=== PATIENT | male | born 1965 | race Caucasian/White ===

== ENCOUNTER 2023-02-19 19:07 | Inpatient (IN) | payer OTHER ==
[~2023-02-19] VITALS: Ht 172.7 cm; Wt 99.8 kg
[~2023-02-19 19:07] MED LIST: HYDR-5080 PO; IBUP-2217 PO; LISI-486 PO; METF-1139 PO
[2023-02-19 19:39] VITALS: BP 147/73; PULSE 67; RESP 16; TEMP 97.4; O2SAT 98
[2023-02-19 21:38] LABS: BASOPHILS % (AUTO) 0.7 % (0.0-2.0); EOSINOPHILS # (AUTO) 0.3 K/uL (0-0.4); EOSINOPHILS % (AUTO) 3.8 % (0.0-4.0); HEMATOCRIT 45.2 % (36-52); HEMOGLOBIN 15.7 g/dL (12.0-18.0); LYMPHOCYTES % (AUTO) 29.3 % (20.5-51.1); MEAN CORPUSCULAR HEMOGLOBIN 32 pg (27-31); MEAN CORPUSCULAR HGB CONC 35 g/dL (33-37); MEAN CORPUSCULAR VOLUME 92.5 fL (80-94); MONOCYTES # (AUTO) 0.8 K/uL (0.8-1.0); MONOCYTES % (AUTO) 11.4 % (1.7-9.3); NEUTROPHILS # (AUTO) 3.8 K/uL (1.8-7.7); NEUTROPHILS % (AUTO) 54.8 % (42.2-75.2); PLATELET COUNT (AUTO) 123 K/uL (140-450); RED BLOOD CELL COUNT(AUTO) 4.89 MIL/uL (4.20-6.10); RED CELL DISTRIBUTION WIDTH 13.8 % (11.6-13.7); WHITE BLOOD COUNT (AUTO) 6.9 K/uL (4.8-10.8)
[2023-02-19 22:01] LABS: ALANINE AMINOTRANSFERASE 29 U/L (12-78); ALKALINE PHOSPHATASE 182 U/L (50-136); ANION GAP 11.5 (8-16); ASPARTATE AMINOTRANSFERASE 23 U/L (15-37); CALCIUM 10.2 mg/dL (8.5-10.1); CARBON DIOXIDE 30.5 mmol/L (21-32); CHLORIDE 99 mmol/L (98-107); CHOL/HDL RATIO 2.7 (1-4.5); CHOLESTEROL 147 mg/dL (<200); CREATININE 0.9 mg/dL (0.6-1.3); GFR ARICAN-AMERICAN 112 mL/min (>90); GFR NON ARICAN-AMERICAN 92 mL/min (>90); GLUCOSE 177 mg/dL (74-106); HDL CHOLESTEROL 54 mg/dL (40-60); LDL (CALC) 75 mg/dL (60-100); SODIUM SERUM 138 mmol/L (136-145); TOTAL BILIRUBIN 0.8 mg/dL (0.0-1.0); TOTAL PROTEIN, SERUM 8.4 g/dL (6.4-8.2); TRIGLYCERIDES 91 mg/dL (30-150); UREA NITROGEN, BLOOD 16 mg/dL (7-18)
[2023-02-19] MEDS ORDERED: POTASSIUM CHLORIDE 10 MEQ TABER PO ONE (23:20)
[2023-02-19 23:55] VITALS: O2SAT 97
[2023-02-20] VITALS (8 sets, daily range): BP systolic 111–160; BP diastolic 66–95; PULSE 67–80; RESP 18; TEMP 96.9–97.9; O2SAT 95–98
[2023-02-20] MEDS ORDERED: MORPHINE SULFATE 4 MG/ML SYR IVP PRN (03:55)
[2023-02-20] MEDS ORDERED: KCL 20 MEQ IN 100 mL PREMIX 200 ML IV PRN (03:55)
[2023-02-20] MEDS ORDERED: POTASSIUM CHLORIDE 10 MEQ TABER PO PRN (03:55)
[2023-02-20] MEDS ORDERED: MAGNESIUM OXIDE 400 MG TAB PO PRN (03:55)
[2023-02-20] MEDS ORDERED: ACETAMINOPHEN 325 MG TAB PO PRN (03:55)
[2023-02-20] MEDS ORDERED: MAG SULF 2000 MG/WATER PREMIX 50 ML IV PRN (03:55)
[2023-02-20] MEDS ORDERED: HYDROcodone/APAP 5/325 MG 1 TAB TAB PO PRN (03:55)
[2023-02-20] MEDS ORDERED: ONDANSETRON 4 MG/2 ML VIAL IVP PRN (03:55)
[2023-02-20] MEDS: NACL 0.9% 1,000 ML IV SCH ×2 (04:52→16:25)
[2023-02-20] MEDS: ENOXAPARIN 40 MG/0.4 ML SYR SUBQ SCH (08:32)
[2023-02-20] MEDS: predniSONE 20 MG TAB PO SCH (16:07)
[2023-02-21 04:00] VITALS: BP 114/68; PULSE 84; RESP 18; TEMP 98.6; O2SAT 98
[2023-02-21] MEDS: NACL 0.9% 1,000 ML IV SCH (04:55)
[2023-02-21 06:46] LABS: BASOPHILS % (AUTO) 0.1 % (0.0-2.0); EOSINOPHILS % (AUTO) 0.1 % (0.0-4.0); HEMATOCRIT 44.8 % (36-52); HEMOGLOBIN 15.6 g/dL (12.0-18.0); LYMPHOCYTES # (AUTO) 0.9 K/uL (2.0-11.5); LYMPHOCYTES % (AUTO) 9.1 % (20.5-51.1); MEAN CORPUSCULAR HEMOGLOBIN 32 pg (27-31); MEAN CORPUSCULAR HGB CONC 35 g/dL (33-37); MEAN CORPUSCULAR VOLUME 92.5 fL (80-94); MONOCYTES # (AUTO) 0.2 K/uL (0.8-1.0); MONOCYTES % (AUTO) 2.5 % (1.7-9.3); NEUTROPHILS # (AUTO) 8.3 K/uL (1.8-7.7); NEUTROPHILS % (AUTO) 88.2 % (42.2-75.2); PLATELET COUNT (AUTO) 128 K/uL (140-450); RED BLOOD CELL COUNT(AUTO) 4.84 MIL/uL (4.20-6.10); WHITE BLOOD COUNT (AUTO) 9.5 K/uL (4.8-10.8)
[2023-02-21 06:48] LABS: ALBUMIN 3.6 g/dL (3.4-5.0); CALCIUM 9.6 mg/dL (8.5-10.1); CARBON DIOXIDE 25.7 mmol/L (21-32); MAGNESIUM 1.2 mg/dL (1.8-2.4); POTASSIUM 3.7 mmol/L (3.5-5.1); TOTAL BILIRUBIN 1.1 mg/dL (0.0-1.0)
[2023-02-21 08:00] VITALS: BP 128/80; PULSE 78; RESP 18; TEMP 97.4; O2SAT 95
[2023-02-21] MEDS: predniSONE 20 MG TAB PO SCH (08:49)
[2023-02-21] MEDS: ENOXAPARIN 40 MG/0.4 ML SYR SUBQ SCH (08:50)
[2023-02-21] MEDS ORDERED: ASPI-1822 PO (12:08)
[2023-02-21] MEDS ORDERED: ATOR40TA PO (12:08)
[2023-02-21] MEDS ORDERED: PRED20TA5 PO (12:09)
[2023-02-21 13:46] VITALS: BP 128/80; PULSE 78; RESP 72; TEMP 97.4
== END 2023-02-21 15:26 | disposition home or self-care (01) | DRG 48 ==
LOC: MED 19:07 → MTU 02-20 03:56
PROVIDERS: ADMIT Student in an Organized Health Care Education/Training Program; ATTEND Student in an Organized Health Care Education/Training Program
DX: G51.0 Bell's palsy (principal); E11.9 Type 2 diabetes mellitus without complications; E87.6 Hypokalemia; I10 Essential (primary) hypertension; Z79.1 Long term (current) use of non-steroidal anti-inflammatories (NSAID); Z79.891 Long term (current) use of opiate analgesic; Z79.899 Other long term (current) drug therapy
CPT/HCPCS: 36415; 70450; 71045; 80053; 83735; 84484; 85025; 87081; 93005; 99285; J1650; J3475; J7512; Q0092; Q9967